=== PATIENT | female | born 1945 | race Caucasian/White ===

== ENCOUNTER 2022-12-11 09:50 | Emergency (ER) | payer MEDICARE, OTHER ==
[~2022-12-11] VITALS: Ht 165.1 cm; Wt 51.4 kg
[~2022-12-11 09:50] MED LIST: ALPR0.5T7; BUPR-60; CARV6.2551; GEMF-66; LEVO25TA6; OMEPRAZOLE DR 20 MG CAPSULE; RANI-226; ROSU20TA14
[2022-12-11 10:48] LABS: Urine Bacteria FEW /hpf (None Seen); Urine Blood Negative /uL (Negative); Urine Mucus FEW (None Seen); Urine Specific Gravity 1.018 (1.001-1.035); Urine WBC 3 /hpf (0 - 5)
[2022-12-11] MEDS ORDERED: NITR-87 PO (12:25)
[2022-12-11 13:06] VITALS: BP 177/52
== END 2022-12-11 13:12 | disposition home or self-care (01) ==
LOC: ER 09:50
DX: N39.0 Urinary tract infection, site not specified (principal); R51.9 Headache, unspecified; K21.9 Gastro-esophageal reflux disease without esophagitis; E78.5 Hyperlipidemia, unspecified; I10 Essential (primary) hypertension; Z87.891 Personal history of nicotine dependence
CPT/HCPCS: 74176; 81001